=== PATIENT | female | born 1955 | race Caucasian/White ===

== ENCOUNTER 2017-04-09 23:18 | Inpatient (IN) | payer MEDICAID, OTHER ==
--- NOTE | 2017-04-09 23:22 | EDPHY ---
H & P HPI/ROS: HPI CHIEF COMPLAINT: High blood sugar from [facility]. HISTORY OF PRESENT ILLNESS: This patient is 62-year-old female, significant past medical history for insulin-dependent diabetes, COPD, chronic kidney disease, hypertension, depression, anxiety dementia, presents to the emergency room by EMS from [facility] for high blood sugar over 500s. According to EMS it is reported that the nurse did not give her her morning insulin this morning as she got too busy and forgot to give it. According to EMS they were called because she was more agitated than normal and had a very high blood sugar. Now it is not reported to me she has been vomiting no fever. She is at her neurological baseline. Past Medical History: Insulin-dependent diabetes, COPD, chronic kidney disease dementia, hyperlipidemia, hypertension Past Surgical History: No recent surgery Social History: Lives at [place] matter Family History: Noncontributory ROS REVIEW OF SYSTEMS: A comprehensive 10 point review of systems is otherwise negative aside from elements mentioned in the history of present illness. Exam Constitutional moaning, does not follow commands, triage nursing summary reviewed, vital signs reviewed, awake/alert. Eyes normal conjunctivae and sclera, EOMI, PERRLA. HENT normal inspection, atraumatic, moist mucus membranes, no epistaxis, neck supple/ no meningismus, no raccoon eyes. Respiratory tachypneic, ketotic, clear to auscultation bilaterally, normal breath sounds, no wheezing. Cardiovascular rate normal, regular rhythm, no murmur, no edema, distal pulses normal. Gastrointestinal soft, non-tender, no rebound, no guarding, normal bowel sounds, no distension, no pulsatile mass. Genitourinary no CVA tenderness. Musculoskeletal no midline vertebral tenderness, full range of motion, no calf swelling, no tenderness of extremities, no meningismus, good pulses, neurovascularly intact. Skin pink, warm, & dry, no rash, skin atraumatic. Neurologic moaning, does not follow commands, according to EMS at her neurological baseline. Psychiatric normal mood/affect. Heme/Lymph/Immune no lymphadenopathy. Differential Diagnosis: Includes but is not limited to in a particular order, dehydration, electrolyte disturbance, DKA, HONK, infection Medical Decision Making: Plan for this patient IV establishment, blood work, chest x-ray, urinalysis, EKG full cardiac tech, determined patient is in DKA. IV hydration. May need insulin drip. Re-evaluation: ED x-ray chest one view: Negative for acute cardiopulmonary disease. Chemistry resulted. 1240AM: Shows low bicarb and elevated blood sugar consistent with DKA. Will start the patient on a DKA insulin drip protocol. Will admit to the ICU. Will consult the hospitalist service Dr. Mayorga Critical Care: Total Critical Care Time Spent Managing this Patient: 65 Minutes. This time was spent Exclusively with this patient. This Care was exclusive of procedures. The Organ System/life at risk was metabolic This Patient was in Critical Condition because DKA 1243AM: No evidence sepsis at this time. Afebrile. Blood work reviewed. Low bicarb. Non calculable anion gap. Blood sugar very high. Indicating DKA. Urinalysis pending at this time. Chest x-ray reviewed shows no pneumonia. No fever. Patient clinically shows tachypnea and smells of ketones. Patient admitted to the ICU for DKA. She received 2 L of normal saline here. With insulin her potassium should correct. Patient was in [facility] 04/03 to 04/07. For Hypoglycemia/agitations. Got d/c to [facility] 04/08. D/c from [facility] to [facility]. BS was over 500. Has Advanced Demetnia. Patient arrived to [facility] with High BS. PCP saw her at [facility] Wednesday. Concerned about High BS there. Was going to go back to [facility], but then got sent here. Upon arrival here BS critical high. EKG: Time of EK: Sinus Tach 104. Paired PVCs. No acute ischemic changes. [phone] JONES. Spoke to her who is her PCP, She is enrolled [address]. Call her for disposition/Case Management. Source: Patient, EMS Constitutional: Initial Vital Signs Temperature (C) 37.0 C 04/09/17 23:20 Heart Rate 109 H 04/09/17 23:20 Respiratory Rate 18 04/09/17 23:20 Blood Pressure 141/65 H 04/09/17 23:20 O2 Sat (%) 94 04/09/17 23:20 O2 Delivery Mode Room Air Allergies/Adverse Reactions: bupropion Allergy (Verified 04/10/17 00:03) estradiol [From Estring] Allergy (Verified 04/10/17 00:03) estrogens, conjugated [From Premarin] Allergy (Verified 04/10/17 00:03) lisinopril Allergy (Verified 04/10/17 00:03) Home Medications: Medication Instructions Recorded Acetaminophen [Tylenol 325mg (*)] 650 mg PO Q6 PRN 04/10/17 Insulin Lispro [Humalog] 0 unit SQ AC 04/10/17 Insulin NPH Human Isophane 15 unit SQ BID 04/10/17 [Humulin N] LORazepam [Ativan] 1 mg PO Q8 PRN 04/10/17 Losartan Potassium [Cozaar] 50 mg PO DAILY 04/10/17 Polyethylene Glycol 3350 [Miralax 17 gm PO DAILY PRN 04/10/17 17 gm (*)] QUEtiapine FUMARATE [Seroquel 25 25 mg PO Q12 PRN 04/10/17 mg (*)] Sennosides [Senna] 8.8 mg PO DAILY 04/10/17 Medical Decision Making - Data Points Laboratory Results: Laboratory Results 04/09/17 23:48 04/09/17 23:48 Medications Given: Discontinued Medications Sodium Chloride (Ns) 1,000 mls @ 0 mls/hr IV ONCE ONE; Wide Open PRN Reason: Protocol Stop: 04/09/17 23:25 Last Admin: 04/10/17 00:01 Dose: 1,000 mls Sodium Chloride (Ns) 1,000 mls @ 0 mls/hr IV ONCE ONE PRN Reason: Wide Open Stop: 04/10/17 00:17 Last Admin: 04/10/17 00:33 Dose: 1,000 mls Insulin Human Regular 100 unit / Miscellaneous Medication 1 ea/ Sodium Chloride 101 mls @ 3 mls/hr IV EDNOW ONE PRN Reason: Protocol Stop: 04/11/17 10:17 Last Admin: 04/10/17 01:22 Dose: 101 mls Sodium Chloride (Ns) 1,000 mls @ 100 mls/hr IV CONT MIHAI Stop: 10/07/17 01:44 Last Admin: 04/10/17 02:00 Dose: 1,000 mls Potassium Chloride (Potassium Cl 10 Meq (Premix)) 100 mls @ 100 mls/hr IV Q1H MIHAI Stop: 04/10/17 07:20 Last Admin: 04/10/17 04:34 Dose: 100 mls Insulin Human Regular 100 unit (/ Sodium Chloride) 101 mls @ 0 mls/hr IV AD MIHAI ; Per Protocol PRN Reason: Protocol Stop: 10/07/17 04:29 Last Admin: 04/10/17 08:46 Dose: 101 mls Potassium Chloride/Dextrose/Sod Cl (D5w Ns W/ 20 Kcl/L) 1,000 mls @ 0 mls/hr IV AD MIHAI; Per Protocol PRN Reason: Protocol Stop: 10/07/17 01:59 Last Admin: 04/10/17 04:35 Dose: 1,000 mls Potassium Chloride (Potassium Cl 10 Meq (Premix)) 100 mls @ 50 mls/hr IV Q2H MIHAI Stop: 04/10/17 11:29 Last Admin: 04/10/17 09:10 Dose: Not Given Dextrose/Sodium Chloride (D5w Ns) 1,000 mls @ 100 mls/hr IV CONT MIHAI Stop: 10/07/17 17:29 Last Admin: 04/11/17 02:20 Dose: 1,000 mls Potassium Chloride (Potassium Cl 10 Meq (Premix)) 50 mls @ 50 mls/hr IV Q1H MIHAI Stop: 04/11/17 11:07 Last Admin: 04/11/17 11:15 Dose: 50 mls Magnesium Sulfate/Dextrose (Magnesium Sulf 1 Gm (Premix)) 100 mls @ 100 mls/hr IV ONCE ONE Stop: 04/11/17 09:07 Last Admin: 04/11/17 08:22 Dose: 100 mls Potassium Chloride (Potassium Cl 10 Meq (Premix)) 50 mls @ 50 mls/hr IV Q1H MIHAI Stop: 04/11/17 22:53 Last Admin: 04/11/17 22:24 Dose: 50 mls Insulin Human Lispro (Humalog Lispro) 5 unit SC Q4 MIHAI Stop: 10/07/17 17:59 Last Admin: 04/11/17 12:55 Dose: Not Given Lorazepam (Ativan Injection) 1 mg IVP EDNOW ONE Stop: 04/10/17 01:22 Last Admin: 04/10/17 01:31 Dose: 1 mg Departure - Departure Disposition: [facility] Acute Clinical Impression: DKA (diabetic ketoacidoses) Qualifiers: Diabetes mellitus type: type 1 Diabetes mellitus complication detail: without coma Qualified Code(s): E10.10 - Type 1 diabetes mellitus with ketoacidosis without coma Condition: Critical
[2017-04-09] MEDS ORDERED: NS 1,000 ML IV ONE (23:24)
[2017-04-10 00:06] LABS: % IMMATURE GRANULYOCYTES 1.4 % (0.0-1.1); ABSOLUTE IMMATURE GRANULOCYTES 0.22 10^3/uL (0.00-0.10); ADD DIFF? NO; ADD MORPH? NO; ADD SCAN? NO; ATYPICAL LYMPHOCYTE FLAG 20 (0-99); FRAGMENT RBC FLAG 0 (0-99); HEMATOCRIT 33.5 % (38.0-47.0); HEMOGLOBIN 10.5 g/dL (12.6-16.3); LEFT SHIFT FLG 20 (0-99); LIPEMIA HEMOLYSIS FLAG 80 (0-99); MEAN CELL HEMOGLOBIN 29.3 pg (27.9-34.1); MEAN CELL HEMOGLOBIN CONCENTR. 31.3 g/dL (32.4-36.7); MEAN CELL VOLUME 93.6 fL (81.5-99.8); MEAN PLATELET VOLUME 14.1 fL (8.7-11.7); PLATELET CLUMPS FLAG 0 (0-99); PLATELET COUNT 107 10^3/uL (150-400); RED BLOOD CELL COUNT 3.58 10^6/uL (4.18-5.33); RED CELL DISTRIBUTION WIDTH 13.9 % (11.5-15.2)
[2017-04-10] MEDS ORDERED: NS 1,000 ML IV ONE (00:16)
[2017-04-10 00:36] LABS: ALANINE AMINOTRANSFERASE 36 IU/L (9-52); ALBUMIN 4.5 g/dL (3.5-5.0); ALKALINE PHOSPHATASE 112 IU/L (38-126); ASPARTATE AMINOTRANSFERASE 21 IU/L (14-46); BILIRUBIN,TOTAL 0.7 mg/dL (0.1-1.4); BILIRUBIN-CONJUGATED 0.4 mg/dL (0.0-0.5); BILIRUBIN-UNCONJUGATED 0.3 mg/dL (0.0-1.1); CALCIUM 9.9 mg/dL (8.5-10.4); CHLORIDE 109 mEq/L (97-110); CREATININE 1.4 mg/dL (0.6-1.0); GLOMERULAR FILTRATION RATE 38; POTASSIUM 5.7 mEq/L (3.5-5.2); SODIUM 156 mEq/L (134-144); TOTAL PROTEIN 7.6 g/dL (6.3-8.2)
[2017-04-10 00:38] LABS: CARBON DIOXIDE < 5 mEq/l (22-31); GLUCOSE 632 mg/dL (70-100)
[2017-04-10] MEDS ORDERED: INSULIN REGULAR HUMAN 100 UNIT, COSIGN. REQUIRED 1 EA in NS 100 ML IV ONE (00:38)
--- NOTE | 2017-04-10 00:49 | CPEKG ---
Heart Rate: 104 RR Interval: 577 P-R Interval: 120 QRSD Interval: 78 QT Interval: 332 QTC Interval: 437 P Irma: 75 QRS Irma: 28 T Wave Irma: 34 EKG Severity - ABNORMAL ECG - EKG Impression: SINUS TACHYCARDIA EKG Impression: PAIRED VENTRICULAR PREMATURE COMPLEXES EKG Impression: PROMINENT P WAVES, NONDIAGNOSTIC Electronically Signed By: Luis Fernando Sales 11-Apr-2017 07:22:40
[2017-04-10 01:16] LABS: COLOR PALE YELLOW; LEUKOCYTE ESTERASE,URINE NEGATIVE (NEGATIVE); NITRITE,URINE NEGATIVE (NEGATIVE)
[2017-04-10 01:20] LABS: MUCUS TRACE /lpf (NONE-1+)
[2017-04-10] MEDS ORDERED: LORazepam 2 MG/ML INJ IVP ONE (01:21)
[2017-04-10 01:30] LABS: BASE EXCESS -21.6 mEq/L (-2.5-2.5); BICARBONATE 5 mEq/L (22-26); MEASURED OXYGEN SATURATION 93 % (92-95); PO2 78 mmHg (65-75)
[2017-04-10 01:36] LABS: PCO2 14 mmHg (34-38)
[2017-04-10 01:37] LABS: TCO2 6 mEq/L (23-27)
[2017-04-10 01:39] LABS: INR 4.72 (0.83-1.16); PROTIME(PATIENT) 45.3 SEC (12.0-15.0)
[2017-04-10 01:40] LABS: APTT 33.1 SEC (23.0-38.0)
[2017-04-10] MEDS ORDERED: ACETAMINOPHEN 325 MG TAB PO PRN (01:44)
[2017-04-10] MEDS ORDERED: ONDANSETRON 4 MG/2 ML VIAL IVP PRN (01:44)
[2017-04-10] MEDS ORDERED: NS 1,000 ML IV SCH ×2 (01:45→02:00)
[2017-04-10] MEDS ORDERED: D5W NS W/ 20 KCl/L 1,000 ML IV SCH (02:00)
[2017-04-10] MEDS ORDERED: INSULIN REGULAR HUMAN 100 UNIT in NS 100 ML IV SCH ×2 (02:00→09:00)
[2017-04-10] MEDS ORDERED: D10W 250 ML PRN HYPOGLYCEMIA IV (02:00)
[2017-04-10] MEDS ORDERED: ALTEPLASE 2 MG VIAL IVP PRN (02:40)
[2017-04-10] MEDS ORDERED: PROTOCOL MAGNESIUM 1 DOSE IV PRN (03:04)
[2017-04-10] MEDS ORDERED: PROTOCOL CALCIUM 1 DOSE IV PRN (03:04)
[2017-04-10] MEDS ORDERED: PROTOCOL POTASSIUM 1 DOSE MISC PRN (03:04)
[2017-04-10 03:47] LABS: COLOR PALE YELLOW; LEUKOCYTE ESTERASE,URINE NEGATIVE (NEGATIVE); NITRITE,URINE NEGATIVE (NEGATIVE)
--- NOTE | 2017-04-10 03:48 | GHP ---
[f rep st] HISTORY AND PHYSICAL DATE OF ADMISSION: 04/10/2017 CHIEF COMPLAINT: Hyperglycemia and agitation. HISTORY OF PRESENT ILLNESS: the patient is a 62-year-old female with advanced vascular dementia due to a ruptured cerebral aneurysm. Her has been having increasing difficulty caring for her at home, as her baseline is nonverbal and poor. There were at a wedding and family reunion recently, and this caused some behavioral disturbances and she stopped eating. She is a type 1 diabetic and her blood glucose dropped to 43, and she ended up in the emergency room at [facility]. She was hospitalized there for hypoglycemia , and they dropped her NPH insulin from 65 per day down to 10 units per day. She was discharged to [facility]. She has been at [facility] only 24 hours. She is now re-presenting to the hospital with increased agitation and very high glucose readings at [facility]. The patient is nonverbal and sedated, unable to provide any further history. PAST MEDICAL HISTORY: 1. Diabetes type 1. 2. Vascular dementia. 3. Ruptured cerebral aneurysm with hemorrhage 4. COPD. 5. Chronic kidney disease. 6. Hypertension. MEDICATIONS: Please see computer record for full detailed list. ALLERGIES: Wellbutrin, lisinopril, estrogen. SOCIAL HISTORY: She was living with her until recently. Currently at [facility] as a respite. Discharged [facility] a little over 24 hours ago. She is a patient of [facility], and her PCP, Dr. Ida Morfin, is very involved, and I have spoken with her personally this evening. She requests daily updates regarding the patient's status, and can be reached at phone number [phone]. Code status per MOST is DNR. REVIEW OF SYSTEMS: Unobtainable due to the patient's altered mental status. FAMILY HISTORY: Unobtainable due to the patient's altered mental status. PHYSICAL EXAMINATION: GENERAL: A well-developed, well-nourished female, in some respiratory distress. Mild agitation, but sedated and unresponsive. VITAL SIGNS: Temperature is 37, pulse 109, blood pressure 150/75, saturating 97 % on room air. EYES: Normal conjunctivae. Pupils equal, round, and reactive to light. ENT: Normal ears and nose. Unable to assess hearing. Oropharynx is dry. NECK: Trachea midline. No thyromegaly. CHEST: Increased respiratory effort. LUNGS: Clear auscultation bilaterally. CARDIOVASCULAR: Regular rhythm. No murmur. No lower extremity edema. ABDOMEN: Soft, nontender. No hepatosplenomegaly. SKIN: Warm, dry, intact. No rash. MUSCULOSKELETAL: No cyanosis or clubbing. Unable to assess strength due to noncooperation. NEURO: Unable to assess cranial nerves or sensation due to nonverbal minimally responsive status. She is awake, breathing heavily, agitated but sedated, nonverbal. LABORATORY DATA: White count 15.38, hematocrit 33.5, platelets 107. Sodium 146 , potassium 5.7, chloride 109, bicarb less than 5. BUN 33, creatinine 1.4, glucose 632, anion gap is 42. LFTs are normal. ABG shows a pH of 7.2, pCO2 of 14, bicarb of 6. IMAGING: Chest x-ray reviewed by me. My personal interpretation is possible right middle lobe infiltrate. EKG reviewed. My personal interpretation is sinus tachycardia. No peaked T- waves. DISCUSSION: I personally spoke with Dr. Ida Morfin this evening. She recounted the events regarding [facility] drastically reducing her insulin for the hypoglycemic episode, and she has been attempting at [facility] to administer frequent insulin, but this failed and the patient had to come to the ER. ASSESSMENT AND PLAN: 1. Diabetic ketoacidosis: This is clearly due to her recent decreased insulin dosage. We will place on insulin drip, IV fluids, and serial Chem-7's. 2. Hypernatremia: Her sodium corrects to 169 when you account for her elevated glucose. This places her in a high risk category regarding needing to correct it very slowly. We will start her on normal saline. She got 2 L in the ER. Will recheck a Chem-7 now stat. We will monitor very closely on normal saline at 100 an hour to ensure that does not correct her overly rapidly. She is clearly hypovolemic. At some point, we may want to switch to half NS, depending on rapidity of correction. 3. Possible aspiration pneumonia. We will start on IV Invanz. 4. Vascular dementia with aggressive behavior disturbances. She just got a dose of IV Ativan, and is now sedated. We will try to use p.r.n. Zyprexa as needed. CODE STATUS: DNR per MOST form. DVT PROPHYLAXIS: Her INR is greater than 4. It is unclear to me whether or not she is on Coumadin. This needs to be clarified. We will hold off on any further anticoagulation. ADMISSION STATUS: We will admit to inpatient, as she is medically complex and will need very slow correction of her sodium disturbance. Therefore greater than 2 midnights anticipated. CRITICAL CARE TIME: Spent 45 minutes. /[id number]/MODL MTDD
[2017-04-10 03:51] LABS: MUCUS TRACE /lpf (NONE-1+)
[2017-04-10 03:57] LABS: ALBUMIN 3.9 g/dL (3.5-5.0); ANION GAP 27 mEq/L (8-16); CALCIUM 9.3 mg/dL (8.5-10.4); CHLORIDE 121 mEq/L (97-110); CREATININE 1.2 mg/dL (0.6-1.0); GLOMERULAR FILTRATION RATE 46; GLUCOSE 421 mg/dL (70-100); MAGNESIUM 2.5 mg/dL (1.6-2.3); POTASSIUM 4.1 mEq/L (3.5-5.2); SODIUM 154 mEq/L (134-144)
[2017-04-10 04:00] LABS: CARBON DIOXIDE 6 mEq/l (22-31)
[2017-04-10] MEDS ORDERED: INSULIN REGULAR HUMAN 100 UNIT/ML IVP PRN (04:30)
[2017-04-10] MEDS: POTASSIUM Cl (KCl) 100 ML IV SCH ×4 (04:33→09:10)
[2017-04-10] MEDS: INSULIN REGULAR HUMAN 100 UNIT in NS 100 ML IV SCH ×2 (05:34→08:46)
[2017-04-10 05:47] LABS: IONIZED CALCIUM 1.33 MMOL/L (1.12-1.30)
[2017-04-10 05:54] LABS: INR 1.15 (0.83-1.16); PROTIME(PATIENT) 14.6 SEC (12.0-15.0)
[2017-04-10 06:00] LABS: CHOLESTEROL 141 mg/dL (140-220); CHOLESTEROL/HDL RATIO 3.53 RATIO (1.00-4.44); HIGH DENSITY LIPOPROTEIN 40 mg/dL (40-85); LDL/HDL RATIO 1.88 RATIO (1.00-3.22); LOW DENSITY LIPOPROTEIN 75 mg/dL (80-100); MAGNESIUM 2.3 mg/dL (1.6-2.3); NON-HIGH DENSITY LIPOPROTEIN 101 mg/dL (90-129); POTASSIUM 3.8 mEq/L (3.5-5.2); TRIGLYCERIDE 134 mg/dL (35-135); VERY LOW DENSITY LIPOPROTEINS 26 mg/dL (8-25)
[2017-04-10 06:08] LABS: % IMMATURE GRANULYOCYTES 1.3 % (0.0-1.1); ABSOLUTE IMMATURE GRANULOCYTES 0.22 10^3/uL (0.00-0.10); ADD DIFF? NO; ADD MORPH? NO; ADD SCAN? NO; ATYPICAL LYMPHOCYTE FLAG 20 (0-99); FRAGMENT RBC FLAG 0 (0-99); HEMATOCRIT 38.2 % (38.0-47.0); HEMOGLOBIN 12.2 g/dL (12.6-16.3); LEFT SHIFT FLG 20 (0-99); LIPEMIA HEMOLYSIS FLAG 80 (0-99); MEAN CELL HEMOGLOBIN 29.2 pg (27.9-34.1); MEAN CELL HEMOGLOBIN CONCENTR. 31.9 g/dL (32.4-36.7); MEAN CELL VOLUME 91.4 fL (81.5-99.8); MEAN PLATELET VOLUME 13.2 fL (8.7-11.7); PLATELET CLUMPS FLAG 0 (0-99); PLATELET COUNT 170 10^3/uL (150-400); RED BLOOD CELL COUNT 4.18 10^6/uL (4.18-5.33); RED CELL DISTRIBUTION WIDTH 13.8 % (11.5-15.2)
[2017-04-10] MEDS: ERTAPENEM 1 GM in NS 100 ML IV SCH ×2 (08:17→08:46)
[2017-04-10 08:52] LABS: ANION GAP 10 mEq/L (8-16); CALCIUM 8.2 mg/dL (8.5-10.4); CARBON DIOXIDE 14 mEq/l (22-31); CHLORIDE 129 mEq/L (97-110); CREATININE 0.7 mg/dL (0.6-1.0); GLOMERULAR FILTRATION RATE > 60; GLUCOSE 191 mg/dL (70-100); POTASSIUM 4.2 mEq/L (3.5-5.2); SODIUM 153 mEq/L (134-144)
[2017-04-10] MEDS ORDERED: ENOXAPARIN 40 MG/0.4 ML SYR SC SCH (09:00)
--- NOTE | 2017-04-10 10:12 | HOSPPROG ---
Hospitalist Progress Note Assessment/Plan: DIAGNOSES: -acute diabetic ketoacidosis with coma -marked hyperchloremia -underlying dementia Is unclear to me at this time what the underlying cause of her initial presenting illness was when she went to [facility], but it sounds like talking to her she had some marked good agitation with changes in behavior, a delirium on top of her dementia I suspect. He had measured blood sugars at home and they were in good range. I do not know how many low blood sugars she had up at the [facility] and will need to review records there. At this time however she clearly has a severe encephalopathy leading to coma, and whether this is just due to her current acute acidosis and other metabolic abnormalities, whether there is some other ongoing underlying illness is the question for me. At this time we need to continue treating with hydration and insulin drip will need to be pain careful attention to maintaining her electrolytes particularly her sodium and chloride in reasonable range, while avoiding hypoglycemia. 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 without fever 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, my review: Sinus Exam: Comatose skin warm dry color ok resps not labored lungs clear BSs heart regular abd soft nondistended, bowel sounds present limbs warm, no edema iv site ok Objective: Vital Signs Temp Pulse Resp BP Pulse Ox 37.1 C 75 16 120/46 L 92 04/10/17 02:00 04/10/17 08:00 04/10/17 08:00 04/10/17 08:00 04/10/17 08:00 Laboratory Results 04/10/17 05:15 04/10/17 08:10 04/09/17 04/10/17 04/11/17 06:59 06:59 06:59 Intake Total 2585 Output Total 560 50 Balance 2024 PT 14.6 SEC (12.0-15.0) D 04/10/17 05:15 INR 1.15 (0.83-1.16) 04/10/17 05:15 - Time Spent With Patient Time Spent with Patient: greater than 35 minutes Time Spent with Patient: Greater than 35 minutes spent on this patients care, greater than 50% of time spent counseling, educating, and coordinating care regarding the above mentioned plan. ICD10 Worksheet Patient Problems: Problems Problem Status Onset DKA (diabetic ketoacidoses) Acute
[2017-04-10 10:49] LABS: ANION GAP 9 mEq/L (8-16); CALCIUM 8.1 mg/dL (8.5-10.4); CARBON DIOXIDE 13 mEq/l (22-31); CHLORIDE 130 mEq/L (97-110); CREATININE 0.7 mg/dL (0.6-1.0); GLOMERULAR FILTRATION RATE > 60; GLUCOSE 112 mg/dL (70-100); POTASSIUM 4.1 mEq/L (3.5-5.2); SODIUM 152 mEq/L (134-144)
[2017-04-10 12:33] LABS: ANION GAP 10 mEq/L (8-16); CALCIUM 8.9 mg/dL (8.5-10.4); CARBON DIOXIDE 16 mEq/l (22-31); CHLORIDE 127 mEq/L (97-110); CREATININE 0.7 mg/dL (0.6-1.0); GLOMERULAR FILTRATION RATE > 60; GLUCOSE 90 mg/dL (70-100); MAGNESIUM 2.1 mg/dL (1.6-2.3); SODIUM 153 mEq/L (134-144)
--- NOTE | 2017-04-10 14:18 | GCON ---
[f rep st] CONSULTATION CRITICAL CARE CONSULTATION DATE OF CONSULTATION: 04/10/2017 HISTORY OF PRESENT ILLNESS: The patient is a 62-year-old female with advanced dementia due to a rup tured cerebral aneurysm. She has been difficult to care for at home by her , who has been geovanna tapia for several years up until about a week ago when she was developing increasing agitation. He r blood sugar was normal at home, and when he got her to the emergency department they said her bloo d sugar was in the 40s. In any case, they did a head CT, which was unremarkable, and an MRI which eric awan said questioned ventriculomegaly, but her symptoms were very inconsistent with normal pressure h ydrocephalus. In any case, they were concerned about the hypoglycemia and subsequently cut her long -acting insulin in half. She was home for less than 24 hours and was quite obtunded and brought to the emergency room here at [facility] where she was found to be in florid DKA. She was start ed on DKA protocol in the intensive care unit with an insulin drip, and her anion gap eventually has closed; but she has remained somewhat somnolent at this time. According to her , there has been no recent fever, chills, or sweats. The agitation was something that was quite new and unrecon ciled to date. There has been no chest pain, no trauma, and no breathing issues. PAST MEDICAL HISTORY: Includes: 1. Diabetes. 2. Dementia, as described above. 3. Ruptured aneurysm, as described above. 4. COPD. 5. Chronic kidney disease. 6. Hypertension. ALLERGIES: Include Wellbutrin, lisinopril, estrogen. SOCIAL HISTORY: She has no current smoking or alcohol. FAMILY HISTORY: Unremarkable at this time. CURRENT MEDICATIONS: Include ertapenem, insulin, magnesium, Zofran, and Zyprexa p.r.n. PHYSICAL EXAMINATION: VITAL SIGNS: She was afebrile. Heart rate was 75, respirations 16, blood pr essure 120/46, oxygen saturation 92% on room air. CONSTITUTIONAL: An overweight female who was in no apparent distress and not using accessory muscles for breathing, but was unresponsive and nonverb al. She did withdraw to stimulus in her upper extremities. HEENT: Pupils equally, round and react shanell to light. Anicteric and noninjected. Mucous membranes are moist without erythema or exudate. NECK: Supple without adenopathy or jugular vein distention. Breath sounds were clear to auscultati on bilaterally without wheeze or rales. HEART: Regular rate and rhythm without murmurs, rubs, or g allops. ABDOMEN: Soft, nontender, nondistended without hepatosplenomegaly. EXTREMITIES: No clubb ing, cyanosis, or edema. NEUROLOGIC: Cranial nerves appear to be intact. SKIN: Warm and dry with out evidence of rash. OBJECTIVE DATA: Includes a white count of 17, hematocrit of 38, and platelets of 170. Her blood ga s yesterday showed a clear metabolic acidosis. Sodium was 156 and is down to 153 today. Her potass ium is 4.0, chloride 127, bicarb 16. Anion gap is now closed at 10. BUN 25, creatinine 0.7. Chest x-ray is unremarkable. ASSESSMENT/PLAN: 1. Diabetic ketoacidosis. I think this is most likely a result of the change in her long-acting in sulin dose and is now currently corrected. 2. Mental status. It is difficult to reconcile at this time. She had a CT and an MRI at [facility], but she may need repeat imaging. In the short term, we will evaluate her sodium to see if t hat is playing a role here as well. 3. Chronic obstructive pulmonary disease. Appears to be stable at this time, and no intervention i s required. /[id number]/MODL
[2017-04-10 14:34] LABS: ANION GAP 9 mEq/L (8-16); CALCIUM 8.8 mg/dL (8.5-10.4); CARBON DIOXIDE 17 mEq/l (22-31); CHLORIDE 127 mEq/L (97-110); CREATININE 0.7 mg/dL (0.6-1.0); GLOMERULAR FILTRATION RATE > 60; GLUCOSE 134 mg/dL (70-100); POTASSIUM 4.2 mEq/L (3.5-5.2); SODIUM 153 mEq/L (134-144)
[2017-04-10] MEDS ORDERED: INSULIN LISPRO 100 UNIT/ML SC PRN (15:19)
[2017-04-10] MEDS: D5W NS 1,000 ML IV SCH (17:20)
[2017-04-10] MEDS: INSULIN LISPRO 100 UNIT/ML SC SCH ×2 (18:24→22:43)
[2017-04-10 20:09] LABS: ANION GAP 9 mEq/L (8-16); CARBON DIOXIDE 17 mEq/l (22-31); CHLORIDE 125 mEq/L (97-110); CREATININE 0.7 mg/dL (0.6-1.0); GLOMERULAR FILTRATION RATE > 60; GLUCOSE 230 mg/dL (70-100); SODIUM 151 mEq/L (134-144)
[2017-04-11] MEDS: INSULIN LISPRO 100 UNIT/ML SC SCH ×6 (02:17→22:16)
[2017-04-11] MEDS: D5W NS 1,000 ML IV SCH (02:20)
[2017-04-11] MEDS: OLANZapine DISINTEGR 5 MG TAB PO PRN ×3 (03:38→17:54)
[2017-04-11 05:14] LABS: IONIZED CALCIUM 1.27 MMOL/L (1.12-1.30)
[2017-04-11 05:53] LABS: ANION GAP 11 mEq/L (8-16); CALCIUM 9.2 mg/dL (8.5-10.4); CARBON DIOXIDE 19 mEq/l (22-31); CHLORIDE 125 mEq/L (97-110); CREATININE 0.6 mg/dL (0.6-1.0); GLOMERULAR FILTRATION RATE > 60; GLUCOSE 92 mg/dL (70-100); MAGNESIUM 1.8 mg/dL (1.6-2.3); POTASSIUM 3.5 mEq/L (3.5-5.2); SODIUM 155 mEq/L (134-144)
[2017-04-11] MEDS ORDERED: MAGNESIUM SULF 1 GM/DEXTROSE 100 ML IV ONE (08:08)
[2017-04-11] MEDS: POTASSIUM Cl (KCl) 50 ML IV SCH ×6 (08:23→22:24)
[2017-04-11] MEDS: ERTAPENEM 1 GM in NS 100 ML IV SCH (09:53)
--- NOTE | 2017-04-11 09:56 | HOSPPROG ---
Hospitalist Progress Note Assessment/Plan: DIAGNOSES: -acute diabetic ketoacidosis with coma -marked hyperchloremia -underlying dementia She is now doing well on subcutaneous insulin dosing. She is not awake enough to eat but hopefully as the day goes on will be able to get her to eat and we can change her to a meal scheduled insulin regimen. For now will continue 4 hour monitoring and dosing of insulin. Her hypernatremia requires ongoing management at this point, the hyperchloremia is better today. This may still be contributing to her altered mentation. With her agitation and the behaviors that have accompanied it which include some aggressive behaviors, will need to do what we can to keep her calmed down but will need to be careful in assessing how she will be taking care of after she leaves the hospital. PLANS: -continue insulin drip, hydration, and close monitoring of acidosis, glucose, and electrolytes -with Na rising again will increase free water in IV -follow for improvement in mentation, consider CT brain if not arousing soon -she will need careful planning and follow up of sugar control upon DC I have reviewed all in detail with Dr Vaca and with the patient's SUBJECTIVE: Patient awake but still unable to communicate to provide any information about symptoms She has required some restraint in order to protect herself from self-injury and also she has been kicking at nursing staff and others. I have spoken with Dr. Prieto 1 and sounds like this is something that she has had ongoing at least for the last week or 2 but she is always fairly feisty it sounds like. 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 She does not respond to what I say to her in particular. Eyes are open and she looks around the room. No signs of focal weakness skin warm dry color ok resps not labored lungs clear BSs heart regular abd soft nondistended, bowel sounds present limbs warm, no edema iv site ok Sugars have been in reasonable range mostly in the 180-200 range, however this morning sugar was 92 Sodium was down to 151 a during the night but back up to 155 this morning Objective: Vital Signs Temp Pulse Resp BP Pulse Ox 36.8 C 66 14 127/56 H 94 04/11/17 05:00 04/11/17 08:00 04/11/17 08:00 04/11/17 08:00 04/11/17 08:00 Laboratory Results 04/10/17 05:15 04/11/17 05:10 04/10/17 04/11/17 04/12/17 06:59 06:59 06:59 Intake Total 2585 2281 Output Total 560 1500 Balance 5 781 PT 14.6 SEC (12.0-15.0) D 04/10/17 05:15 INR 1.15 (0.83-1.16) 04/10/17 05:15 ICD10 Worksheet Patient Problems: Problems Problem Status Onset DKA (diabetic ketoacidoses) Acute
[2017-04-11] MEDS: QUEtiapine FUMARATE 25 MG TAB PO PRN ×2 (10:17→17:54)
[2017-04-11] MEDS: 1/2 NS 1,000 ML IV SCH (14:27)
[2017-04-11 18:26] LABS: ANION GAP 10 mEq/L (8-16); CALCIUM 8.7 mg/dL (8.5-10.4); CARBON DIOXIDE 21 mEq/l (22-31); CHLORIDE 116 mEq/L (97-110); CREATININE 0.6 mg/dL (0.6-1.0); GLOMERULAR FILTRATION RATE > 60; GLUCOSE 150 mg/dL (70-100); POTASSIUM 3.6 mEq/L (3.5-5.2); SODIUM 147 mEq/L (134-144)
[2017-04-12] MEDS: INSULIN LISPRO 100 UNIT/ML SC SCH ×5 (01:56→17:49)
[2017-04-12] MEDS: 1/2 NS 1,000 ML IV SCH (01:57)
[2017-04-12 05:21] LABS: IONIZED CALCIUM 1.18 MMOL/L (1.12-1.30)
[2017-04-12 05:37] LABS: ANION GAP 7 mEq/L (8-16); CARBON DIOXIDE 24 mEq/l (22-31); CHLORIDE 110 mEq/L (97-110); CREATININE 0.6 mg/dL (0.6-1.0); GLOMERULAR FILTRATION RATE > 60; GLUCOSE 308 mg/dL (70-100); MAGNESIUM 1.7 mg/dL (1.6-2.3); POTASSIUM 3.9 mEq/L (3.5-5.2); SODIUM 141 mEq/L (134-144)
[2017-04-12] MEDS ORDERED: POTASSIUM CL 10 MEQ TAB PO ONE (07:37)
[2017-04-12] MEDS: ERTAPENEM 1 GM in NS 100 ML IV SCH (09:14)
[2017-04-12] MEDS ORDERED: LORazepam 1 MG TAB PO PRN (10:50)
[2017-04-12] MEDS ORDERED: D50W 25 GM/50 ML SYR IVP PRN (10:52)
[2017-04-12] MEDS ORDERED: D10W 250 ML PRN HYPOGLYCEMIA IV (11:00)
[2017-04-12] MEDS: ENOXAPARIN 40 MG/0.4 ML SYR SC SCH (11:04)
[2017-04-12] MEDS ORDERED: INSULIN GLARGINE 100 UNITS/ML SYRINGE SC SCH (11:15)
--- NOTE | 2017-04-12 15:42 | HOSPPROG ---
Hospitalist Progress Note Assessment/Plan: * DKA - resolved * DM - type 1 -resume Lantus -keep at half dose until PO intake established -titrate up to usual dose Lantus 35 am / 30 pm * Vascular dementia s/p ruptured aneurysm -recent head CT/brain MRI at [facility] - unchanged * Metabolic encephalopathy with agitation -prn zyprexa * Hypernatremia - resolved Subjective: less agitated today but still aggressive, biting staff Objective: Vital Signs Temp Pulse Resp BP Pulse Ox 36.2 C 66 14 144/77 H 96 04/12/17 04:00 04/12/17 08:00 04/12/17 08:00 04/12/17 08:00 04/12/17 08:00 Laboratory Results 04/10/17 05:15 04/12/17 05:00 04/11/17 04/12/17 04/13/17 05:59 05:59 05:59 Intake Total 2281 2252 Output Total 1500 1500 275 Balance 781 752 -275 PT 14.6 SEC (12.0-15.0) D 04/10/17 05:15 INR 1.15 (0.83-1.16) 04/10/17 05:15 case d/w Dr. Prieto H - all aspects of management discussed CXR - negative for PNA - Physical Exam Constitutional: no apparent distress, appears nourished, not in pain Cardiovascular: regular rate and rhythym, no murmur, rub, or gallop Respiratory: no respiratory distress, no rales or rhonchi, clear to auscultation Gastrointestinal: normoactive bowel sounds, soft, non-tender abdomen, no palpable masses Skin: no rashes or abrasions, no fluctuance, no induration Neurologic: No AAOx3 Psychiatric: encephalopathic, agitated, poor insight, poor judgement, poor memory, No interacting appropriately ICD10 Worksheet Patient Problems: Problems Problem Status Onset DKA (diabetic ketoacidoses) Acute
[2017-04-12] MEDS: INSULIN NPH HUMAN 100 UNITS/ML SYRINGE SC SCH ×2 (20:59→21:06)
[2017-04-12] MEDS: OLANZapine DISINTEGR 5 MG TAB PO PRN (20:59)
[2017-04-12] MEDS: HALOPERIDOL LACT 5 MG/ML INJ IVP PRN (23:49)
[2017-04-13 06:05] LABS: % IMMATURE GRANULYOCYTES 0.3 % (0.0-1.1); ABSOLUTE IMMATURE GRANULOCYTES 0.03 10^3/uL (0.00-0.10); ADD DIFF? NO; ADD MORPH? NO; ADD SCAN? NO; ATYPICAL LYMPHOCYTE FLAG 0 (0-99); FRAGMENT RBC FLAG 0 (0-99); HEMATOCRIT 32.7 % (38.0-47.0); LEFT SHIFT FLG 0 (0-99); LIPEMIA HEMOLYSIS FLAG 80 (0-99); MEAN CELL HEMOGLOBIN 29.1 pg (27.9-34.1); MEAN CELL HEMOGLOBIN CONCENTR. 33.6 g/dL (32.4-36.7); MEAN CELL VOLUME 86.5 fL (81.5-99.8); MEAN PLATELET VOLUME 13.2 fL (8.7-11.7); PLATELET CLUMPS FLAG 0 (0-99); PLATELET COUNT 122 10^3/uL (150-400); RED BLOOD CELL COUNT 3.78 10^6/uL (4.18-5.33); RED CELL DISTRIBUTION WIDTH 13.6 % (11.5-15.2)
[2017-04-13 06:08] LABS: MAGNESIUM 1.8 mg/dL (1.6-2.3); POTASSIUM 3.4 mEq/L (3.5-5.2)
[2017-04-13] MEDS ORDERED: ENOXAPARIN 40 MG/0.4 ML SYR SC SCH (09:00)
[2017-04-13] MEDS ORDERED: INSULIN NPH HUMAN 100 UNITS/ML SYRINGE SC SCH ×2 (09:00→21:00)
[2017-04-13] MEDS: INSULIN GLARGINE 100 UNITS/ML SYRINGE SC SCH (09:24)
[2017-04-13] MEDS: LOSARTAN POTASSIUM 50 MG TAB PO SCH (09:24)
[2017-04-13] MEDS: ENOXAPARIN 40 MG/0.4 ML SYR SC SCH (09:24)
[2017-04-13] MEDS: SENNOSIDES 17.6 MG/10 ML UDL PO SCH (09:24)
[2017-04-13] MEDS: INSULIN LISPRO 100 UNIT/ML SC SCH ×3 (09:33→17:04)
[2017-04-13] MEDS ORDERED: POTASSIUM CL 10 MEQ TAB PO ONE (13:00)
--- NOTE | 2017-04-13 13:55 | PDIAF ---
- Diagnosis Diagnosis: DKA Code Status: Do Not Resuscitate - Medication Management Discharge Medications: Medications to Continue on Transfer Acetaminophen [Tylenol 325mg (*)] 650 mg PO Q6 PRN 04/10/17 [Last Taken Unknown] Insulin Lispro [Humalog] 1 - 15 unit SQ AC 04/10/17 [Last Taken Unknown] LORazepam [Ativan] 1 mg PO Q8 PRN 04/10/17 [Last Taken 04/09/17] Losartan Potassium [Cozaar] 50 mg PO DAILY 04/10/17 [Last Taken 04/09/17] Polyethylene Glycol 3350 [Miralax 17 gm (*)] 17 gm PO DAILY PRN 04/10/17 [Last Taken Unknown] Sennosides [Senna] 8.8 mg PO DAILY 04/10/17 [Last Taken 04/09/17] Insulin Glargine [Lantus 100 UNITS/ML (*)] 30 units SC HS 04/12/17 [Last Taken Unknown] Insulin Glargine [Lantus 100 UNITS/ML (*)] 35 units SC DAILY 04/12/17 [Last Taken Unknown] OLANZapine [ZyPREXA 2.5 mg (*)] 2.5 mg PO HS #30 tab 04/14/17 [Last Taken Unknown] OLANZapine [Zyprexa] 2.5 - 5 mg PO Q6 PRN #30 tablet 04/14/17 [Last Taken Unknown] Discharge Medications: Refer to the Discharge Home Medication list for PRN reason. - Orders Services needed: Home Care, Registered Nurse, Physical Therapy, Occupational Therapy Home Care Face to Face: I certify that this patient was under my care and that I had the required [id number] encounter meeting the encounter requirements on the discharge day. My findings support the fact that the patient is homebound as defined in CMS Chapter 7 Medicare Benefits Manual 30.1.1, The condition of the patient is such that there exists a normal inability to leave home and consequently, leaving home would require a considerable and taxing effort. Diet Recommendation: ADA 1800 consistent carb Diet Texture: Regular Texture Diet, Thin Liquids - Follow Up Care Current Providers and Referrals: Patient,NotPresent [Unknown] - As per Instructions Ida De La Cruz MD [Primary Care Provider] -
[2017-04-13] MEDS: HALOPERIDOL LACT 5 MG/ML INJ IVP PRN (16:30)
--- NOTE | 2017-04-13 16:47 | HOSPPROG ---
Hospitalist Progress Note Assessment/Plan: * DKA - resolved * DM - type 1 -resume NPH at home doses * Vascular dementia s/p ruptured aneurysm -recent head CT/brain MRI at [facility] - unchanged * Metabolic encephalopathy with agitation -prn zyprexa * Hypernatremia - resolved Subjective: no new complaints. Objective: Vital Signs Temp Pulse Resp BP Pulse Ox 37.0 C 95 18 136/109 H 95 04/13/17 08:00 04/13/17 16:00 04/13/17 16:00 04/13/17 16:00 04/13/17 16:00 Laboratory Results 04/13/17 05:40 04/13/17 05:40 04/12/17 04/13/17 04/14/17 05:59 05:59 05:59 Intake Total 2252 1161 Output Total 1500 275 Balance 752 886 PT 14.6 SEC (12.0-15.0) D 04/10/17 05:15 INR 1.15 (0.83-1.16) 04/10/17 05:15 - Physical Exam Constitutional: no apparent distress, appears nourished, not in pain Cardiovascular: regular rate and rhythym, no murmur, rub, or gallop Respiratory: no respiratory distress, no rales or rhonchi, clear to auscultation Gastrointestinal: normoactive bowel sounds, soft, non-tender abdomen, no palpable masses Skin: no rashes or abrasions, no fluctuance, no induration Psychiatric: encephalopathic, anxious, agitated, poor insight, poor judgement, poor memory, No interacting appropriately, No not anxious ICD10 Worksheet Patient Problems: Problems Problem Status Onset DKA (diabetic ketoacidoses) Acute
[2017-04-13 19:30] VITALS: TEMP 97.8
[2017-04-13] MEDS: OLANZapine DISINTEGR 5 MG TAB PO PRN (19:30)
[2017-04-13] MEDS ORDERED: INSULIN GLARGINE 100 UNITS/ML SYRINGE SC SCH (21:00)
[2017-04-14 08:24] VITALS: BP 120/60; PULSE 64; RESP 14; O2SAT 93
[2017-04-14] MEDS: INSULIN LISPRO 100 UNIT/ML SC SCH (08:48)
[2017-04-14] MEDS: LOSARTAN POTASSIUM 50 MG TAB PO SCH (08:49)
[2017-04-14] MEDS: SENNOSIDES 17.6 MG/10 ML UDL PO SCH (08:49)
[2017-04-14] MEDS: INSULIN GLARGINE 100 UNITS/ML SYRINGE SC SCH (08:49)
[2017-04-14] MEDS: ENOXAPARIN 40 MG/0.4 ML SYR SC SCH (08:50)
--- NOTE | 2017-04-15 06:16 | GDS ---
[f rep st] DISCHARGE SUMMARY DISCHARGE DIAGNOSES: 1. Diabetic ketoacidosis. 2. Type 1 diabetes. 3. Vascular dementia, status post ruptured aneurysm. 4. Metabolic encephalopathy with agitation. 5. Hypernatremia. HISTORY: The patient, 62-year-old female, known longstanding type 1 diabetic, who was recently hosp italized at [facility] for hypoglycemia and increasing agitation and difficulty with ambulation . They reduced her insulin due to this hypoglycemic episode and discharged her to [facility]. A t [facility], she became progressively ill and hyperglycemic and presented to us in DKA. This wa s clearly due to inadequate insulin dosing. DKA resolved with usual protocol. Have now put her nilda k on her previous NPH long-standing insulin doses, which her feels that she was quite stable on. She is being discharged to assisted living and close following of [facility]. Agitation has been an issue, recently escalating. She had a CT scan of her head and a brain MRI at [facility], which were negative. We used Zyprexa here with good results. We will continue benjamin t medication upon discharge, and this can be titrated per primary care. She was very hypernatremic due to hypovolemic upon presentation. Hypernatremia was treated with gra dual reduction of sodium and has remained normal throughout the remainder of her stay. DISCHARGE MEDICATIONS: Please see computer record for full detailed list. New medications: Zyprexa 2.5 mg p.o. q.h.s. plus 2.5 to 5 p.o. q.6 hours as needed. This medicatio n is absolutely necessary due to severe dementia-related agitation compromising her safety. ADDITIONAL DISCHARGE INSTRUCTIONS: Follow up with Dr. Ida De La Cruz primary care with [facility] to a [facility] living with ongoing therapies. Greater than 30 minutes' time was spent arranging this discharge. Patient was seen and examined by me on the day of discharge. /[id number]/MODL
== END 2017-04-14 09:20 | disposition home health service (06) | DRG 637 ==
LOC: EDUNIT# → F2N 04-10 01:56
PROVIDERS: ADMIT Internal Medicine; ATTEND Internal Medicine
PROC: 02HV33Z Insertion of Infusion Device into Superior Vena Cava, Percutaneous Approach (ICD-10-PCS; principal; 2017-04-10)
DX: E10.11 Type 1 diabetes mellitus with ketoacidosis with coma (principal); G93.41 Metabolic encephalopathy; F01.51 Vascular dementia, unspecified severity, with behavioral disturbance; E87.0 Hyperosmolality and hypernatremia; E87.8 Other disorders of electrolyte and fluid balance, not elsewhere classified; E10.22 Type 1 diabetes mellitus with diabetic chronic kidney disease; N18.2 Chronic kidney disease, stage 2 (mild); I12.9 Hypertensive chronic kidney disease with stage 1 through stage 4 chronic kidney disease, or unspecified chronic kidney disease; J44.9 Chronic obstructive pulmonary disease, unspecified; F41.8 Other specified anxiety disorders; E78.5 Hyperlipidemia, unspecified; F17.210 Nicotine dependence, cigarettes, uncomplicated; G47.33 Obstructive sleep apnea (adult) (pediatric); K59.09 Other constipation; Z66 Do not resuscitate; Z86.79 Personal history of other diseases of the circulatory system
CPT/HCPCS: 82947-QW; 92610-GN; 96374; 97163-GP; 97166-GO; C1751; G8978-GP-CL; G8979-GP-CJ; J1335; J1650; J1815; J2060; J3475